=== PATIENT | female | born 1980 | race Two or more races ===

== ENCOUNTER 2016-11-03 16:35 | Emergency (ER) | payer MEDICARE, OTHER ==
[~2016-11-03] VITALS: Ht 162.6 cm; Wt 99.8 kg
[2016-11-03 16:35] VITALS: BP 120/78
[2016-11-03] MEDS ORDERED: DiphenhydrAMINE 50mg/ml Inj IM ONE (17:45)
[2016-11-03] MEDS ORDERED: Haloperidol 5mg/ml Inj IM ONE (17:45)
[2016-11-03] MEDS ORDERED: LORazepam 1mg tab ORAL ONE (17:45)
[2016-11-03 17:55] VITALS: BP 120/78
--- NOTE | 2016-11-03 21:32 | Emergency Room Report ---
History of Present Illness General Chief Complaint: General Complaint Source: Medical Record, EMS (MICHAEL LANDA.AAide) Present Illness HPI The patient is a 36-year-old female with a Hx of psychosis brought in by ambulance from [facility] stating that she has not received her psychiatric medications within the past week. The patient's psychiatrist was coincidentally in the emergency department and states that this is false. Patient states she has been feeling more anxious within the past week since the psychiatrist discontinued ativan. The psychiatrist has agreed to provide this medication when the patient returns to the facility. The patient denies any other symptoms including N, V, F, chills, FLOOD, dizziness (MICHAEL LANDA P.A.) Allergies: Coded Allergies: FISH CONTAINING PRODUCTS (Verified Allergy, Unknown, 11/03/16) PENICILLIN G (Verified Allergy, Unknown, 11/03/16) Pork (Verified Allergy, Unknown, 11/03/16) Patient History Past Medical History: see triage record Pertinent Family History: none Last Menstrual Period: Unknown Now: No Reviewed Nursing Documentation: PMH: Agreed, PSxH: Agreed (MICHAEL LANDA P.AAide) Nursing Documentation-PMH Past Medical History: No History, Except For Hx Hypertension: Yes (MICHAEL LANDA P.AAide) Review of Systems All Other Systems: negative except mentioned in HPI (MICHAEL LANDA P.A.) Physical Exam Vital Signs Date Time Temp Pulse Resp B/P Pulse Ox O2 Delivery O2 Flow Rate FiO2 11/03/16 16:35 97.3 85 16 120/78 98 Room Air Sp02 EP Interpretation: reviewed, normal General Appearance: no apparent distress, alert, GCS 15, non-toxic Head: normocephalic, atraumatic Eyes: bilateral eye PERRL, bilateral eye normal inspection ENT: hearing grossly normal, normal pharynx, no angioedema, normal voice Neurologic: alert, oriented x3, responsive, motor strength/tone normal, sensory intact, normal gait, speech normal Psychiatric: anxious Skin: normal color, no rash, warm/dry, well hydrated Lymphatic: no adenopathy (MICHAEL LANDA P.A.) Medical Decision Making PA Attestation Dr. Hollis is my supervising physician. Patient management was discussed with my supervising physician (MICHAEL LANDA) Diagnostic Impression: Primary Impression: Psychosis Qualified Codes: F29 - Unspecified psychosis not due to a substance or known physiological condition ER Course The patient is a 36-year-old female brought in by ambulance from [facility] stating that she has not received her psychiatric medications within the past week. Differential diagnoses considered but not limited to psychosis, anxiety disorder , suicidal ideation, depression PE: vitals WNL. Mildly anxious Alert and oriented x3. PERRL Normal gait Otherwise exam is unremarkable The patient's psychiatrist has asked for the patient to receive Ativan, Benadryl , and Haldol and then return to the [facility]. ER precautions are given. (MICHAEL LANDA) Last Vital Signs Date Time Temp Pulse Resp B/P Pulse Ox O2 Delivery O2 Flow Rate FiO2 11/03/16 18:00 97.3 76 16 120/78 98 Room Air Status: improved (MICHAEL LANDA) Disposition: HOME, SELF-CARE Condition: Improved Referrals: Bladimir Gale MD (PCP) Patient Instructions: Psychosis Additional Instructions: I discussed my findings with the patient. All questions and concerns have been answered. Treatment and medication compliance have been addressed. Return to ED if symptoms worsen, new symptoms arise, or if needed for any reason. Patient verbalized understanding of discharge instructions. MICHAEL LANDA Nov 03, 2016 21:32 LINDEN HOLLIS M.D. Nov 05, 2016 20:58
--- NOTE | 2016-11-04 02:38 | Consultation ---
DATE OF CONSULTATION: HISTORY OF PRESENT ILLNESS: This is a 36-year-old female with a history of schizoaffective disorder, who has been recently hospitalized at [facility], has been admitted to the emergency room at [facility]. Apparently, she became very frustrated, agitated, and called 911. Therefore, the ambulance brought her to the emergency room. In the emergency room, she denied any suicidal or homicidal ideation. She is complaining of auditory hallucinations and stated that she is severely anxious and agitated. Also, she is complaining of severe pain, which is not getting better by taking Tylenol. She is asking to receive a shot as she is very agitated and she states that she wants to take Haldol, Benadryl, and Ativan. She also is requesting for Restoril and Ativan as well as Motrin instead of Tylenol. PAST PSYCHIATRIC HISTORY: She has been diagnosed with schizoaffective disorder and has had aggressive behaviors in the past. She has an outpatient psychiatrist who is visiting her at the [facility] who happened to be myself and she is receiving combination of Depakote, risperidone, Ativan, and Restoril. PAST MEDICAL HISTORY: Obesity, hypertension, and hyperlipidemia. ALLERGIES: No known drug allergies. SUBSTANCE ABUSE HISTORY: No history of illicit drug use or alcohol. MENTAL STATUS EXAMINATION: The patient is oriented x4. Mood is anxious, agitated, and irritable. Affect is constricted. Congruent mood. Thought process is concrete. Thought content, no suicidal or homicidal ideation. Positive for auditory hallucinations. Insight and judgment are impaired. ASSESSMENT: 1. AXIS I: Schizoaffective disorder. 2. AXIS II: Deferred. 3. AXIS III: Obesity. 4. AXIS IV: Low. 5. AXIS V: 25. PLAN: 1. The patient does not meet the criteria for inpatient level of care or 5154 as she is not suicidal, homicidal, . She will be given a cocktail shot to decrease her agitation. 2. When she is calmer, she will be sent back to her [facility] and she will be prescribed medication. Also call the [facility], order all the medications for her before she arrives. Ying Roberts M.D. DR: Matthew JOB#: [id number] CC:
== END 2016-11-03 18:22 | disposition home or self-care (01) ==
LOC: EDBD 16:35 → EMR 17:11
DX: F29 Unspecified psychosis not due to a substance or known physiological condition (principal); I10 Essential (primary) hypertension; Z88.0 Allergy status to penicillin; Z91.018 Allergy to other foods
CPT/HCPCS: 81025; 96372; 99283; J1200; J1630

== ENCOUNTER 2017-01-07 22:35 | Emergency (ER) | payer MEDICARE, OTHER ==
[~2017-01-07] VITALS: Ht 165.1 cm; Wt 81.6 kg
[2017-01-07 22:40] VITALS: BP 168/96
[2017-01-07] MEDS ORDERED: LORazepam 1mg tab ORAL ONE (23:00)
[2017-01-07 23:55] VITALS: BP 130/67
--- NOTE | 2017-01-08 06:16 | Emergency Room Report ---
History of Present Illness General Chief Complaint: Behavioral Complaint Source: Patient Present Illness HPI 36YOF BIBEMS with "give me haldol and ativan" because I'm hearing voices. Patient endorses Psych history, compliant with meds. States voices are "talking about me, telling me they're going to take my daughter from me." Denies voices are telling her to hurt herself or others. Denies SI, HI. Of note, patient quickly switches back from a type of histrionic display describing her voices to a calm, collected voice in discussion with me. Allergies: Coded Allergies: FISH CONTAINING PRODUCTS (Verified Allergy, Unknown, 11/03/16) PENICILLIN G (Verified Allergy, Unknown, 11/03/16) Pork (Verified Allergy, Unknown, 11/03/16) Patient History Past Medical History: psych hx Past Surgical History: none Pertinent Family History: none Social History: Denies: alcohol use, drug use, smoking Last Menstrual Period: LAST MONTH Now: No Immunizations: UTD Reviewed Nursing Documentation: PMH: Agreed, PSxH: Agreed Nursing Documentation-PMH Hx Hypertension: Yes Review of Systems All Other Systems: negative except mentioned in HPI Physical Exam Vital Signs Date Time Temp Pulse Resp B/P Pulse Ox O2 Delivery O2 Flow Rate FiO2 01/07/17 22:33 98.1 84 18 168/96 98 Room Air Sp02 EP Interpretation: reviewed, normal General Appearance: normal inspection, well appearing, no apparent distress, alert, GCS 15, non-toxic Head: normocephalic, atraumatic Eyes: bilateral eye EOMI, bilateral eye PERRL ENT: normal ENT inspection, hearing grossly normal, normal voice Neck: normal inspection, full range of motion, supple, no bony tend Respiratory: normal inspection, lungs clear, normal breath sounds, no respiratory distress, no retraction, no wheezing Cardiovascular #1: regular rate, rhythm, no edema Gastrointestinal: normal inspection, normal bowel sounds, non tender, soft, no guarding, no hernia Genitourinary: no CVA tenderness Musculoskeletal: normal inspection, back normal, normal range of motion, Chavo' s Sign negative Neurologic: normal inspection, alert, oriented x3, responsive, system software programmer III-XII nml as tested, motor strength/tone normal, speech normal Psychiatric: normal inspection, judgement/insight normal, memory normal, mood/ affect normal, no suicidal/homicidal ideation, no delusions, other - Histrionic Skin: normal inspection, normal color, no rash Medical Decision Making Diagnostic Impression: Primary Impression: Behavioral change ER Course 36YOF with psych history, histrionic, requesting haldol/ativan. VSS. Afebrile No SI, HI. Advised patient she did not need such sedating/powerful medications Endorses she "Really just has anxiety." She is amenable to PO ativan Requesting transfer back to SNF Last Vital Signs Date Time Temp Pulse Resp B/P Pulse Ox O2 Delivery O2 Flow Rate FiO2 01/07/17 23:55 98.4 83 16 130/67 100 Room Air Status: improved Disposition: [facility] Condition: Improved Referrals: Bladimir Gale MD (PCP) Patient Instructions: Panic Attacks, [id number] LINDEN HOLLIS M.D. Jan 08, 2017 06:16
== END 2017-01-07 23:55 ==
LOC: EDBD 22:35 → EMR 22:55
DX: F91.9 Conduct disorder, unspecified (principal); I10 Essential (primary) hypertension; Z91.013 Allergy to seafood; Z91.018 Allergy to other foods; Z88.0 Allergy status to penicillin
CPT/HCPCS: 99283

== ENCOUNTER 2017-02-06 15:39 | Emergency (ER) | payer MEDICARE, OTHER ==
[~2017-02-06] VITALS: Ht 165.1 cm; Wt 126.1 kg
[2017-02-06 15:43] VITALS: BP 134/96
[2017-02-06] MEDS ORDERED: LORAZEPAM2 MG/1 M4 ORAL (15:51)
[2017-02-06] MEDS ORDERED: TEMAZEPAM30 MG ORAL (15:51)
[2017-02-06] MEDS ORDERED: LORAZEPAM2 MG ORAL (15:54)
[2017-02-06] MEDS ORDERED: LORazepam 1mg tab ORAL ONE (16:00)
[2017-02-06 16:06] VITALS: BP 134/96
--- NOTE | 2017-02-06 16:22 | Emergency Room Report ---
History of Present Illness General Chief Complaint: Behavioral Complaint Source: Patient, Medical Record, EMS Present Illness HPI 36YOF BIBEMS from [facility] for medication refill. Was DCed from [facility] 4 days ago without her medications for anxiety. Per [facility], last Rx January 13 for temazepam and lorazepam. Is followed by Dr Blackman for psychiatry Endorses anxiety because she hasnt had her medication. Endorses non-specific anxiety no particular stressors. But otherwise denies SI, HI, AVH Denies medical problems or complaints Feels well otherwise Allergies: Coded Allergies: FISH CONTAINING PRODUCTS (Verified Allergy, Unknown, 11/03/16) PENICILLIN G (Verified Allergy, Unknown, 11/03/16) Pork (Verified Allergy, Unknown, 11/03/16) Uncoded Allergies: FISH (Allergy, Unknown, 02/06/17) PENICILLIN (Allergy, Unknown, 02/06/17) Patient History Past Medical History: psych hx Past Surgical History: none Pertinent Family History: none Social History: Denies: alcohol use, drug use, smoking Last Menstrual Period: 01/21/17 Now: No Immunizations: UTD Reviewed Nursing Documentation: PMH: Agreed, PSxH: Agreed Nursing Documentation-PMH Past Medical History: No History, Except For Hx Hypertension: Yes Review of Systems All Other Systems: negative except mentioned in HPI Physical Exam Vital Signs Date Time Temp Pulse Resp B/P Pulse Ox O2 Delivery O2 Flow Rate FiO2 02/06/17 15:40 97.9 70 14 134/96 99 Room Air Sp02 EP Interpretation: reviewed, normal General Appearance: normal inspection, well appearing, no apparent distress, alert Head: atraumatic ENT: normal ENT inspection, hearing grossly normal, normal voice Neck: normal inspection, full range of motion, supple, no bony tend Respiratory: normal inspection, lungs clear, normal breath sounds, no respiratory distress, no retraction, no wheezing Gastrointestinal: normal inspection, normal bowel sounds, non tender, soft, no guarding, no hernia Genitourinary: no CVA tenderness Musculoskeletal: normal inspection, back normal, normal range of motion, Chavo' s Sign negative Neurologic: normal inspection, alert, oriented x3, responsive, service supervisor III-XII nml as tested, motor strength/tone normal, speech normal Psychiatric: normal inspection, judgement/insight normal, mood/affect normal, no suicidal/homicidal ideation, no delusions, anxious Skin: normal inspection, normal color, no rash Medical Decision Making Diagnostic Impression: Primary Impression: Behavioral change Additional Impressions: Medication refill Anxiety ER Course 36YOF with known anxiety, med refill - VSS. Afebrile. - Denies SI, HI, AVH - Previous visits to [facility] for same - Spoke with Dr Blackman, she concurs with giving refill of meds here - No need for urgent psych cx/eval or inpatient psych hospitalization at this time DC home with Rx refilled Advised to followup with Dr Blackman, outpatient Last Vital Signs Date Time Temp Pulse Resp B/P Pulse Ox O2 Delivery O2 Flow Rate FiO2 02/06/17 16:06 97.9 14 134/96 99 Room Air 02/06/17 15:40 70 Status: improved Disposition: HOME, SELF-CARE Condition: Improved Scripts Lorazepam* (LORAZEPAM*) 2 Mg Tablet 2 MG ORAL THREE TIMES A DAY for 30 Days, #60 TAB Prov: LINDEN HOLLIS M.D. 02/06/17 Temazepam* (TEMAZEPAM*) 30 Mg Capsule 30 MG ORAL BEDTIME Y for Insomnia for 25 Days, #25 CAP Prov: LINDEN HOLLIS M.D. 02/06/17 Referrals: NOT CHOSEN IPA/,REFERRING (PCP) Patient Instructions: Medicine Refill at the Emergency Department Additional Instructions: - Please follow up with Dr Blackman as soon as possible LINDEN HOLLIS M.D. Feb 06, 2017 16:21
== END 2017-02-06 16:07 | disposition home or self-care (01) ==
LOC: EDBD 15:39 → EMR 15:50
DX: Z76.0 Encounter for issue of repeat prescription (principal); F41.9 Anxiety disorder, unspecified; F91.8 Other conduct disorders; I10 Essential (primary) hypertension; Z88.0 Allergy status to penicillin; Z91.018 Allergy to other foods
CPT/HCPCS: 99284

== ENCOUNTER 2017-03-09 11:11 | Emergency (ER) | payer MEDICARE, OTHER ==
[~2017-03-09] VITALS: Ht 165.1 cm; Wt 119.7 kg
[2017-03-09 11:11] VITALS: BP 105/76
[~2017-03-09 11:11] MED LIST: LORAZEPAM2 MG ORAL; LORAZEPAM2 MG/1 M4 ORAL; TEMAZEPAM30 MG ORAL
[2017-03-09] MEDS ORDERED: RISPERDAL0.25 MG ORAL (11:19)
[2017-03-09] MEDS ORDERED: BENZTROPINE ME0.5 MG PO (11:19)
[2017-03-09] MEDS ORDERED: ARMOUR THYROID30 MG ORAL (11:19)
[2017-03-09] MEDS ORDERED: DEPAKOTE250 MG PO (11:19)
[2017-03-09] MEDS ORDERED: LORazepam Inj 2mg/ml 1ml IV ONE (11:45)
[2017-03-09 11:57] LABS: BASOPHILS % (AUTO) 0.8 % (0.0-2.0); EOSINOPHILS % (AUTO) 4.9 % (0.0-3.0); LYMPHOCYTES % (AUTO) 24.8 % (20.0-45.0); MEAN CORPUSCULAR HEMOGLOBIN 30.3 PG (27.0-31.0); MEAN CORPUSCULAR HGB CONC 32.8 G/DL (32.0-36.0); MEAN CORPUSCULAR VOLUME 93 FL (80-99); MEAN PLATELET VOLUME 6.5 FL (6.5-10.1); NEUTROPHILS % (AUTO) 63.6 % (45.0-75.0); PLATELET COUNT 302 K/UL (150-450); RED BLOOD COUNT 4.55 M/UL (4.20-5.40); RED CELL DISTRIBUTION WIDTH 13.2 % (11.6-14.8); WHITE BLOOD COUNT 6.2 K/UL (4.8-10.8)
[2017-03-09] MEDS ORDERED: Haloperidol Decanoate 50mg Inj IM ONE (12:00)
[2017-03-09 12:10] LABS: ACETAMINOPHEN < 10 ug/mL (10-30); ALANINE AMINOTRANSFERASE 18 U/L (3-33); ALBUMIN/GLOBULIN RATIO 1.6 (1.0-2.7); ALCOHOL < 10 mg/dL; ANION GAP 12 (5-15); ASPARTATE AMINO TRANSFERASE 18 U/L (5-40); CALCIUM 9.6 mg/dL (8.6-10.2); CARBON DIOXIDE 26 mEQ/L (20-30); CHLORIDE 101 mEQ/L (98-107); CREATININE 0.8 mg/dL (0.5-0.9); GLOMERULAR FILTRATION RATE > 60 mL/min (>60); HEMOLYSIS 9; POTASSIUM 3.4 mEQ/L (3.4-4.9); SODIUM 139 mEQ/L (135-145); TOTAL PROTEIN 6.7 g/dL (6.6-8.7)
[2017-03-09 12:23] VITALS: BP 112/58
[2017-03-09] MEDS ORDERED: ATIVAN2 MG ORAL (12:27)
[2017-03-09 12:33] VITALS: BP 112/58
--- NOTE | 2017-03-09 14:44 | Emergency Room Report ---
History of Present Illness General Chief Complaint: Abdominal Pain Source: Patient Present Illness HPI 36-year-old female presents ED for evaluation. Patient comes in screaming by EMS. States that she is having a panic attack in her mind is racing. Notes history of anxiety and lives currently in a [id number]. States that she currently doesn't have her medication for 2 days. Prescription will be filled tomorrow. She is hearing voices. Denies any suicidal or homicidal ideation. She is requesting a shot to calm her down. Patient states her psychiatrist used to be Dr. Roberts. Denies any drug use. No other aggravating or leading factors. Denies any other associated symptom Allergies: Coded Allergies: FISH CONTAINING PRODUCTS (Verified Allergy, Unknown, 11/03/16) PENICILLIN G (Verified Allergy, Unknown, 11/03/16) PENICILLINS (Unverified Allergy, Unknown, 03/09/17) PORK DERIVED (PORCINE) (Unverified Allergy, Unknown, 03/09/17) Pork (Verified Allergy, Unknown, 11/03/16) Uncoded Allergies: FISH (Allergy, Unknown, 02/06/17) PENICILLIN (Allergy, Unknown, 02/06/17) Patient History Past Medical History: psych hx Past Surgical History: none Pertinent Family History: none Social History: Denies: alcohol use, drug use, smoking Last Menstrual Period: 02/26/17 Now: No Immunizations: UTD Reviewed Nursing Documentation: PMH: Agreed, PSxH: Agreed Nursing Documentation-PMH Hx Hypertension: Yes History Of Psychiatric Problem: Yes - Bipolar; Schizophrenia Review of Systems All Other Systems: negative except mentioned in HPI Physical Exam Vital Signs Date Time Temp Pulse Resp B/P Pulse Ox O2 Delivery O2 Flow Rate FiO2 03/09/17 11:06 97.7 136 16 110/82 96 Room Air Sp02 EP Interpretation: reviewed, normal General Appearance: no apparent distress, alert, GCS 15, non-toxic, obese Head: normocephalic, atraumatic Eyes: bilateral eye PERRL, bilateral eye normal inspection ENT: hearing grossly normal, normal pharynx, no angioedema, normal voice Neck: full range of motion, supple/symm/no masses Respiratory: chest non-tender, lungs clear, normal breath sounds, speaking full sentences Cardiovascular #1: regular rate, rhythm, no edema Cardiovascular #2: 2+ carotid (R), 2+ carotid (L), 2+ radial (R), 2+ radial (L) , 2+ dorsalis pedis (R), 2+ dorsalis pedis (L) Gastrointestinal: normal bowel sounds, non tender, soft, non-distended, no guarding, no rebound Rectal: deferred Genitourinary: normal inspection, no CVA tenderness Musculoskeletal: back normal, gait/station normal, normal range of motion, non- tender Neurologic: alert, oriented x3, responsive, motor strength/tone normal, sensory intact, speech normal Psychiatric: memory normal, no suicidal/homicidal ideation, anxious Reflexes: 3+ bicep (R), 3+ bicep (L), 3+ tricep (R), 3+ tricep (L), 3+ knee (R) , 3+ knee (L) Skin: normal color, no rash, warm/dry, well hydrated Lymphatic: no adenopathy Medical Decision Making Diagnostic Impression: Primary Impression: Anxiety Additional Impressions: Medication refill Substance abuse ER Course Hospital Course 36-year-old female presents ED complaining of feeling very anxious. History of anxiety and psychiatric issues Differential diagnoses include: dehydration, psychosis, substance abuse Clinical course Patient placed on stretcher. on radiation monitor. After initial history and physical I ordered labs, IVFs and ativan labs reviewed- no leukocytosis, hemoglobin/hematocrit stable, troponins negative , electrolytes okay, Utox + amphetamines Discussed case with Dr. Roberts (psychiatry); she knows his patient very well although is currently not taking care of the patient. she recommends Haldol deconate and some Ativan here. Patient will receive her medications tomorrow as scheduled On reassessment patient feels better and wishes to be discharged. Resting refill of her Ativan. I agreed to provide her with a short course I. I feel this is a highly complex case requiring extensive working including EKG/Rhythm strip, Xray/CT/US, Blood/urine lab work, repeat exams while in ED, and administration of strong opiates/narcotics for pain control, admission to hospital or close patient follow up. Diagnosis - anxiety, medication refill, substance abuse Stable and discharged to home with Rx Ativan. Followup with PMD/psychiatry. Return to ED if symptoms recur or worse Labs Test 03/09/17 11:35 White Blood Count 6.2 K/UL (4.8-10.8) Red Blood Count 4.55 M/UL (4.20-5.40) Hemoglobin 13.8 G/DL (12.0-16.0) Hematocrit 42.1 % (37.0-47.0) Mean Corpuscular Volume 93 FL (80-99) Mean Corpuscular Hemoglobin 30.3 PG (27.0-31.0) Mean Corpuscular Hemoglobin Concent 32.8 G/DL (32.0-36.0) Red Cell Distribution Width 13.2 % (11.6-14.8) Platelet Count 302 K/UL (150-450) Mean Platelet Volume 6.5 FL (6.5-10.1) Neutrophils (%) (Auto) 63.6 % (45.0-75.0) Lymphocytes (%) (Auto) 24.8 % (20.0-45.0) Monocytes (%) (Auto) 6.0 % (1.0-10.0) Eosinophils (%) (Auto) 4.9 % (0.0-3.0) Basophils (%) (Auto) 0.8 % (0.0-2.0) Urine HCG, Qualitative Negative Sodium Level 139 mEQ/L (135-145) Potassium Level 3.4 mEQ/L (3.4-4.9) Chloride Level 101 mEQ/L (98-107) Carbon Dioxide Level 26 mEQ/L (20-30) Anion Gap 12 (5-15) Blood Urea Nitrogen 4 mg/dL (7-23) Creatinine 0.8 mg/dL (0.5-0.9) Estimat Glomerular Filtration Rate > 60 mL/min (>60) Glucose Level 155 mg/dL (74-106) Calcium Level 9.6 mg/dL (8.6-10.2) Total Bilirubin 0.4 mg/dL (0.0-1.2) Aspartate Amino Transf (AST/SGOT) 18 U/L (5-40) Alanine Aminotransferase (ALT/SGPT) 18 U/L (3-33) Alkaline Phosphatase 68 U/L (35-104) Total Protein 6.7 g/dL (6.6-8.7) Albumin 4.2 g/dL (3.5-5.2) Globulin 2.5 g/dL Albumin/Globulin Ratio 1.6 (1.0-2.7) Thyroid Stimulating Hormone (TSH) 1.360 uIU/mL (0.300-4.500) Salicylates Level < 1 mg/dL (10-30) Urine Opiates Screen Negative (NEGATIVE) Acetaminophen Level < 10 ug/mL (10-30) Urine Barbiturates Screen Negative (NEGATIVE) Phencyclidine (PCP) Screen Negative (NEGATIVE) Urine Amphetamines Screen Positive (NEGATIVE) Urine Benzodiazepines Screen Positive (NEGATIVE) Urine Cocaine Screen Negative (NEGATIVE) Urine Marijuana (THC) Screen Negative (NEGATIVE) Serum Alcohol < 10 mg/dL Last Vital Signs Date Time Temp Pulse Resp B/P Pulse Ox O2 Delivery O2 Flow Rate FiO2 03/09/17 12:33 97.7 88 19 112/58 98 Room Air Status: improved Disposition: HOME, SELF-CARE Condition: Stable Scripts Lorazepam* (ATIVAN*) 2 Mg Tablet 2 MG ORAL THREE TIMES A DAY, #20 TAB Prov: TANIA WATTS M.D. 03/09/17 Referrals: NON PHYSICIAN (PCP) Patient Instructions: Panic Attacks, [id number] TANIA WATTS M.D. Mar 09, 2017 14:44
== END 2017-03-09 12:33 | disposition home or self-care (01) ==
LOC: EDBD 11:11 → EMR 11:57
DX: F41.9 Anxiety disorder, unspecified (principal); F19.10 Other psychoactive substance abuse, uncomplicated; Z76.0 Encounter for issue of repeat prescription; R44.0 Auditory hallucinations; Z88.0 Allergy status to penicillin; Z91.013 Allergy to seafood; I10 Essential (primary) hypertension; E66.9 Obesity, unspecified
CPT/HCPCS: 36415; 80053; 80300; 81025; 84443; 85025; 96360; 96375; 99284; G0480; J1631; J7040; 80329